=== PATIENT | male | born 1995 | race Caucasian/White ===

== ENCOUNTER 2024-07-22 05:08 | Emergency (ER) | payer BC, OTHER ==
[~2024-07-22] VITALS: Ht 170.2 cm; Wt 76.0 kg
[2024-07-22 05:11] VITALS: TEMP 37; O2SAT 90
[2024-07-22 05:48] LABS: EOSINOPHILS % 3.3 % (0.0-5.0); HEMATOCRIT. 52.6 % (42.0-52.0); LYMPHOCYTES % 27.3 % (20.0-50.0); MEAN CORPUSCULAR HEMOGLOBIN 29.6 pg (28.0-32.0); MEAN CORPUSCULAR HGB CONC 34.3 g/dL (31.0-37.0); MEAN CORPUSCULAR VOLUME 86.4 fL (80.0-94.0); MEAN PLATELET VOLUME 6.9 fl (7.4-10.4); MONOCYTES % 11.2 % (2.0-8.0); NEUTROPHILS % 57.2 % (40.0-76.0); PLATELET 184 x1000/uL (130-400); RED BLOOD CELL COUNT 6.09 mill/uL (4.7-6.1); RED CELL DISTRIBUTION WIDTH 13.7 % (11.6-14.6); WHITE BLOOD COUNT 6.4 x1000/uL (4.5-11.0)
[2024-07-22 05:55] LABS: CHLORIDE 109 mEq/L (98-107); POTASSIUM 3.5 mEq/L (3.5-5.1); SODIUM 138 mEq/L (136-145)
[2024-07-22 05:56] LABS: CARBON DIOXIDE 20 mEq/L (21-32)
[2024-07-22 05:57] LABS: CALCIUM 8.9 mg/dL (8.7-10.4)
[2024-07-22 06:01] LABS: CREATININE 0.7 mg/dL (0.6-1.3)
[2024-07-22 06:02] LABS: GLUCOSE 103 mg/dL (70-105); UREA NITROGEN BLOOD 17 mg/dL (9-23)
[2024-07-22] MEDS: TRANEXAMIC ACID 1,000MG/10ML TP ONE (06:28)
[2024-07-22 06:49] VITALS: BP 121/66; PULSE 70; RESP 20; O2SAT 88
[2024-07-22] MEDS ORDERED: AMOX1TAB16 MT (06:58)
== END 2024-07-22 07:09 | disposition home or self-care (01) ==
LOC: ER 05:08
DX: S91.002A Unspecified open wound, left ankle, initial encounter (principal); I10 Essential (primary) hypertension; Z98.890 Other specified postprocedural states; W54.0XXA Bitten by dog, initial encounter; Y93.89 Activity, other specified; Y92.89 Other specified places as the place of occurrence of the external cause; Y99.8 Other external cause status
CPT/HCPCS: 36415; 80048; 85025; 99283